=== PATIENT | female | born 1965 | race African-American/Black ===

== ENCOUNTER 2017-10-09 12:24 | Inpatient (IN) | payer OTHER ==
[~2017-10-09] VITALS: Ht 160 cm; Wt 88.9 kg
[2017-10-09 13:22] LABS: BASOPHILS % 0.2 % (0.0-2.0); EOSINOPHILS % 0.8 % (0.0-5.0); HEMATOCRIT. 36.9 % (36.0-48.0); HEMOGLOBIN. 12.3 g/dL (12.0-16.0); LYMPHOCYTES % 11.4 % (20.0-50.0); MEAN CORPUSCULAR VOLUME 86.8 fL (81.0-99.0); MONOCYTES % 3.8 % (2.0-8.0); NEUTROPHILS % 83.8 % (40.0-76.0); PLATELET 264 x1000/uL (130-400); RED BLOOD CELL COUNT 4.25 mill/uL (4.2-5.4); RED CELL DISTRIBUTION WIDTH 14.2 % (11.6-14.6)
[2017-10-09 13:26] LABS: CHLORIDE 108 mEq/L (98-107)
[2017-10-09 13:28] LABS: INR 1.1; PROTHROMBIN TIME 11.5 sec (9.4-11.6)
[2017-10-09 13:42] LABS: CARBON DIOXIDE 27 mEq/L (21-32)
[2017-10-09 13:45] LABS: TROPONIN I 0.05 ng/mL (0.00-0.04)
[2017-10-09] MEDS ORDERED: CLONIDINE 0.1MG TABLET PO PRN (15:15)
[2017-10-09] MEDS ORDERED: ACETAMINOPHEN 325MG TABLET PO PRN (15:15)
[2017-10-09] MEDS ORDERED: HYDROCODONE/ACETAMINOPHEN 5/325MG TABLET PO PRN (15:15)
[2017-10-09] MEDS ORDERED: ONDANSETRON HCL 4MG/2ML VIAL IV PRN (15:15)
[2017-10-09 18:49] VITALS: BP 130/77
[2017-10-09] MEDS ORDERED: METF500T4 PO (19:02)
[2017-10-09] MEDS ORDERED: CITA10TA9 PO (19:02)
[2017-10-09] MEDS ORDERED: ASPI-1159 PO (19:02)
[2017-10-09] MEDS ORDERED: LISI10TA5 PO (19:02)
[2017-10-09] MEDS ORDERED: ATOR40TA70 PO (19:02)
[2017-10-09 20:00] VITALS: BP_SYST 119; BP_SYST 130; BP_DIAS 77
[2017-10-09] MEDS ORDERED: DEXTROSE 50% WATER 50ML SYRINGE IV PRN (22:00)
[2017-10-09] MEDS: BLOOD SUGAR DIAGNOSTIC STRIP TEST SCH (22:46)
[2017-10-09] MEDS: CITALOPRAM HYDROBROMIDE 20MG TABLET PO SCH (23:25)
[2017-10-10] VITALS (8 sets, daily range): BP systolic 97–124; BP diastolic 57–81
[2017-10-10 00:30] LABS: CREATINE KINASE MB FRACTION 1.8 ng/mL (0.5-3.6); TROPONIN I 0.04 ng/mL (0.00-0.04)
[2017-10-10 06:43] LABS: BASOPHILS % 0.4 % (0.0-2.0); EOSINOPHILS % 0.9 % (0.0-5.0); HEMATOCRIT. 35.5 % (36.0-48.0); HEMOGLOBIN. 12.3 g/dL (12.0-16.0); LYMPHOCYTES % 26.4 % (20.0-50.0); MEAN CORPUSCULAR VOLUME 86.5 fL (81.0-99.0); MEAN PLATELET VOLUME 8.2 fl (7.4-10.4); MONOCYTES % 7.7 % (2.0-8.0); NEUTROPHILS % 64.6 % (40.0-76.0); PLATELET 254 x1000/uL (130-400); RED CELL DISTRIBUTION WIDTH 14.1 % (11.6-14.6)
[2017-10-10] MEDS: INSULIN LISPRO 100 UNITS/ML SUBCUT SCH ×4 (06:48→21:00)
[2017-10-10] MEDS: BLOOD SUGAR DIAGNOSTIC STRIP TEST SCH ×4 (06:48→21:00)
[2017-10-10 07:07] LABS: CARBON DIOXIDE 24 mEq/L (21-32); CHLORIDE 108 mEq/L (98-107); T4 FREE 0.89 ng/dL (0.76-1.46)
[2017-10-10 07:11] LABS: HDL CHOLESTEROL 34 mg/dL (40-59); LDL CHOLESTEROL 28 mg/dL (5-100)
[2017-10-10 07:16] LABS: CREATINE KINASE MB FRACTION 1.2 ng/mL (0.5-3.6); TROPONIN I 0.04 ng/mL (0.00-0.04)
[2017-10-10] MEDS: METFORMIN HCL 500MG TABLET PO SCH ×2 (08:28→17:38)
[2017-10-10] MEDS ORDERED: ASPIRIN 81MG EC TABLET PO SCH ×2 (09:00)
[2017-10-10] MEDS ORDERED: LISINOPRIL 10MG TABLET PO SCH (09:00)
[2017-10-10] MEDS ORDERED: AMLODIPINE 10MG TABLET PO SCH (09:00)
[2017-10-10] MEDS ORDERED: POTASSIUM CHLORIDE 20MEQ TABLET SR PO NR (11:00)
[2017-10-10] MEDS: CITALOPRAM HYDROBROMIDE 20MG TABLET PO SCH (20:03)
[2017-10-10] MEDS ORDERED: CITALOPRAM HYDROBROMIDE 10MG TABLET PO SCH (21:00)
[2017-10-10] MEDS ORDERED: ATORVASTATIN CALCIUM 40MG TABLET PO SCH (21:00)
== END 2017-10-10 23:59 | disposition short-term general hospital (02) | DRG 312 ==
LOC: ER 12:24 → 8WST 14:10 → SUPCPDRO 15:06 → ENRESERV 17:45
PROVIDERS: ADMIT Hospitalist; ATTEND Hospitalist
DX: R55 Syncope and collapse (principal); E11.9 Type 2 diabetes mellitus without complications; I10 Essential (primary) hypertension
CPT/HCPCS: 36415; 71010; 80053; 80061; 82550; 82553; 82962; 84439; 84443; 84484; 85025; 85610; 93005; 93306; 93970; 99285